=== PATIENT | male | born 1940 | race African-American/Black ===

== ENCOUNTER 2018-06-18 10:29 | Inpatient (IN) | payer MEDICARE, BC, OTHER ==
[~2018-06-18] VITALS: Ht 172.7 cm; Wt 68.0 kg
[2018-06-18] MEDS ORDERED: ELIQUIS (10:38)
[2018-06-18] MEDS ORDERED: IV NORMAL SALINE 500 ML BAG IV ONE (10:45)
--- NOTE | 2018-06-18 10:45 | NUR ---
PT IS IN ROOM #1B. DR NORTON EVALUATED THE PT.
[2018-06-18 11:01] LABS: BASOPHILS % (AUTO) 0.3 % (0.0-2.0); EOSINOPHILS % (AUTO) 0.9 % (0.0-7.0); HEMOGLOBIN 11.7 g/dL (12.5-16.3); LYMPHOCYTES # (AUTO) 1.4 K/uL (20.0-40.0); LYMPHOCYTES % (AUTO) 29.7 % (20.5-51.5); MEAN CORPUSCULAR HEMOGLOBIN 28.5 uug (23.8-33.4); MEAN CORPUSCULAR HGB CONC 32 g/dL (32.5-36.3); MEAN CORPUSCULAR VOLUME 89.9 fL (73.0-96.2); MONOCYTES # (AUTO) 0.6 K/uL (2.0-10.0); MONOCYTES % (AUTO) 12.9 % (0.0-11.0); NEUTROPHILS # (AUTO) 2.6 K/uL (1.8-8.9); NEUTROPHILS % (AUTO) 56.2 % (38.5-71.5); PLATELET COUNT (AUTO) 146 K/uL (152-348); RED BLOOD CELL COUNT(AUTO) 4.12 MIL/uL (4.06-5.63); WHITE BLOOD COUNT (AUTO) 4.6 K/uL (3.6-10.2)
[2018-06-18 11:08] LABS: CARBON DIOXIDE 30 mmol/L (21-32); CHLORIDE 108 mmol/L (98-107); CREATININE 1.8 mg/dL (0.6-1.3); GLUCOSE 120 mg/dL (74-106); UREA NITROGEN, BLOOD 33 mg/dL (7-18)
[2018-06-18 11:13] LABS: ALANINE AMINOTRANSFERASE 23 U/L (16-63); ALKALINE PHOSPHATASE 51 U/L (50-136); ASPARTATE AMINOTRANSFERASE 15 U/L (15-37); BILIRUBIN,DIRECT 0.1 mg/dL (0.0-0.2); BILIRUBIN,TOTAL 0.3 mg/dL (0.2-1.0); TOTAL PROTEIN, SERUM 6.3 g/dL (6.4-8.2)
[2018-06-18] MEDS ORDERED: SIMVASTATIN (11:31)
[2018-06-18] MEDS ORDERED: B/P MEDICATION (11:31)
[2018-06-18] MEDS ORDERED: CHLORTHALIDONE (11:31)
--- NOTE | 2018-06-18 11:31 | NUR ---
Patient and family unable to provide complete information about home medications. Family stated they will attempt to obtain for information.
[2018-06-18] MEDS ORDERED: ONDANSETRON 4 MG/2 ML VIAL IV PRN (12:30)
[2018-06-18] MEDS ORDERED: MAGNESIUM HYDROXIDE 30 ML LIQUID UDC PO PRN (12:30)
[2018-06-18] MEDS ORDERED: Z GUARD REMEDY PASTE 57 GM TUBE TOP PRN (12:30)
[2018-06-18] MEDS ORDERED: ACETAMINOPHEN 325 MG TABLET PO PRN (12:30)
[2018-06-18] MEDS ORDERED: ASPIRIN 325 MG TABLET PO ONE (12:45)
--- NOTE | 2018-06-18 12:46 | NUR ---
REPORT WAS GIVEN TO IS ARCHITECT. PT WAS TRANSFERED TO ROOM #310.
[2018-06-18 13:14] LABS: *BILIRUBIN,URIN NEGATIVE (NEGATIVE); *BLOOD, URINE NEGATIVE (NEGATIVE); *CLARITY,URINE CLEAR (CLEAR); *COLOR,URINE YELLOW (YELLOW); *KETONES,URINE NEGATIVE (NEGATIVE); *UROBILINOGEN,URINE 0.2 E.U./dl (NORMAL); LEUKOCYTE ESTERASE ,URINE NEGATIVE (NEGATIVE); NITRITE, URINE NEGATIVE (NEGATIVE); UGLUCOSE NEGATIVE (NEGATIVE)
[2018-06-18 13:19] LABS: BACTERIA,URINE FEW /HPF (NONE SEEN); RBC,URINE NONE SEEN /HPF (0-3); SQUAMOUS EPITHELIAL CELL,UR FEW /HPF (NONE SEEN); WBC,URINE NONE SEEN /HPF (0-3)
--- NOTE | 2018-06-18 13:25 | NUR ---
77 year old male received from er for syncope via gurney to room 310 in stable condition v/s are stable,call light with in reach md called for admission orders is at bed side .p[t is axox4
[2018-06-18 14:19] VITALS: BP 126/69
[2018-06-18] MEDS: IV NS 1000 ML 1,000 ML IV PRN (14:52)
[2018-06-18 15:57] VITALS: BP 131/77
[2018-06-18 19:13] VITALS: BP 132/73
[2018-06-18] MEDS ORDERED: SIMVASTATIN 40 MG TABLET PO SCH (21:00)
--- NOTE | 2018-06-18 23:00 | NUR ---
Received patient awake in bed with family at bedside. Patient is AAOx4. Patient verbalizes feeling better except for a slight burning sensation on right hip/buttox area that is relieved with PRN Tylenol and heating pad. Patient is ambulatory with assist due to weakness on the right side. Patient utilizes the bedside commode. VSS stable. No acute distress noted. All needs met at this time. Call light within reach. Comfort and safety measures implemented. Will continue to monitor throughout shift.
[2018-06-18 23:55] VITALS: BP 153/79
[2018-06-19 03:11] VITALS: BP 144/80
--- NOTE | 2018-06-19 05:44 | NUR ---
Patient slept throughout night. No acute distress noted. Denies pain or any discomfort. Safety measures implemented and effective. Call light within reach. Continue plan of care.
[2018-06-19] MEDS: PANTOPRAZOLE SODIUM 40 MG TABLET.DR PO SCH (06:14)
[2018-06-19 06:29] LABS: BASOPHILS % (AUTO) 0.3 % (0.0-2.0); EOSINOPHILS # (AUTO) 0.1 K/uL (0.0-0.7); EOSINOPHILS % (AUTO) 1.2 % (0.0-7.0); HEMATOCRIT 39.2 % (36.7-47.1); HEMOGLOBIN 12.5 g/dL (12.5-16.3); LYMPHOCYTES # (AUTO) 1.3 K/uL (20.0-40.0); LYMPHOCYTES % (AUTO) 23.9 % (20.5-51.5); MEAN CORPUSCULAR HEMOGLOBIN 28.7 uug (23.8-33.4); MEAN CORPUSCULAR HGB CONC 32 g/dL (32.5-36.3); MEAN CORPUSCULAR VOLUME 90.1 fL (73.0-96.2); MONOCYTES # (AUTO) 0.6 K/uL (2.0-10.0); NEUTROPHILS # (AUTO) 3.5 K/uL (1.8-8.9); NEUTROPHILS % (AUTO) 63.6 % (38.5-71.5); PLATELET COUNT (AUTO) 137 K/uL (152-348); RED BLOOD CELL COUNT(AUTO) 4.35 MIL/uL (4.06-5.63); WHITE BLOOD COUNT (AUTO) 5.4 K/uL (3.6-10.2)
[2018-06-19 06:45] LABS: CARBON DIOXIDE 30 mmol/L (21-32); CHLORIDE 104 mmol/L (98-107); CHOLESTEROL 107 mg/dL (<200); CREATININE 1.4 mg/dL (0.6-1.3); GLUCOSE 89 mg/dL (74-106); HDL CHOLESTEROL 59 mg/dL (40-60); MAGNESIUM 1.7 mg/dL (1.8-2.4); PHOSPHOROUS 2.5 mg/dL (2.5-4.9); POTASSIUM 3.1 mmol/L (3.5-5.1); TRIGLYCERIDES 37 MG/DL (30-150); UREA NITROGEN, BLOOD 24 mg/dL (7-18)
[2018-06-19] MEDS: IV NS 1000 ML 1,000 ML IV PRN ×2 (06:52→19:02)
[2018-06-19] MEDS ORDERED: MAGNESIUM OXIDE 400 MG TABLET PO ONE (07:30)
[2018-06-19] MEDS: POTASSIUM CHLORIDE 50 ML IV SCH ×4 (07:43→10:58)
[2018-06-19] MEDS ORDERED: SIMVASTATIN 10 MG TABLET PO SCH (09:00)
[2018-06-19] MEDS ORDERED: SODIUM CHLORIDE 2% OPHT DROPS 15 ML EACHEYE SCH (10:11)
[2018-06-19 11:29] VITALS: BP 133/80
[2018-06-19] MEDS ORDERED: ROSU20TA31 PO (11:42)
[2018-06-19] MEDS ORDERED: APIX5TAB PO (11:42)
[2018-06-19] MEDS ORDERED: KRIL1CAP22 PO (11:42)
[2018-06-19] MEDS ORDERED: ERGO500040 PO (11:42)
[2018-06-19] MEDS ORDERED: HYDR-4077 PO (11:42)
[2018-06-19] MEDS ORDERED: PRED5DRO16 EACHEYE (11:43)
[2018-06-19] MEDS ORDERED: CARB15DR56 EACHEYE (11:48)
[2018-06-19] MEDS: MAGNESIUM SULFATE/D5W 100 ML IV SCH ×2 (14:32→15:01)
[2018-06-19] MEDS: APIXABAN 5 MG TABLET**PATIENT'S OWN MED PO SCH (16:46)
[2018-06-19] MEDS ORDERED: POLYVINYL ALCOHOL OPHT DROPS 15 ML BOTTLE EACHEYE PRN (17:15)
--- NOTE | 2018-06-19 20:00 | NUR ---
RECEIVED PATIENT AWAKE IN BED. PATIENT IS A/O X4. PATIENT DENIES PAIN. NO RESP. DISTRESS NOTED. VS WNL. H/L INTACT AND PATENT, WITH IVF INFUSING WELL. CALL LIGHT IN REACH. ALL NEEDS ATTENDED. WILL CONTINUE TO MONITOR AND ASSESS.
[2018-06-19 20:07] VITALS: BP 121/71
[2018-06-19] MEDS ORDERED: prednisoLONE ACET 1% OPHT DROP 5 ML BOTTLE EACHEYE SCH ×3 (21:00)
[2018-06-19] MEDS ORDERED: ROSUVASTATIN 20MG TAB PO SCH (21:00)
[2018-06-20 05:34] VITALS: BP 154/82
[2018-06-20] MEDS: PANTOPRAZOLE SODIUM 40 MG TABLET.DR PO SCH (06:21)
[2018-06-20 06:49] LABS: BASOPHILS % (AUTO) 0.2 % (0.0-2.0); EOSINOPHILS # (AUTO) 0.1 K/uL (0.0-0.7); EOSINOPHILS % (AUTO) 1.2 % (0.0-7.0); HEMATOCRIT 35.9 % (36.7-47.1); HEMOGLOBIN 11.7 g/dL (12.5-16.3); LYMPHOCYTES # (AUTO) 1.3 K/uL (20.0-40.0); LYMPHOCYTES % (AUTO) 23.2 % (20.5-51.5); MEAN CORPUSCULAR HGB CONC 33 g/dL (32.5-36.3); MEAN CORPUSCULAR VOLUME 89.3 fL (73.0-96.2); MONOCYTES # (AUTO) 0.6 K/uL (2.0-10.0); NEUTROPHILS # (AUTO) 3.5 K/uL (1.8-8.9); NEUTROPHILS % (AUTO) 64.4 % (38.5-71.5); PLATELET COUNT (AUTO) 141 K/uL (152-348); RED BLOOD CELL COUNT(AUTO) 4.03 MIL/uL (4.06-5.63); WHITE BLOOD COUNT (AUTO) 5.4 K/uL (3.6-10.2)
--- NOTE | 2018-06-20 06:55 | NUR ---
PATIENT AWAKE IN BED. SLEPT WELL THROUGHOUT THE NIGHT. IVF INFUSING WELL. CALL LIGHT IN REACH. ALL NEEDS ATTENDED. WILL CONTINUE TO MONITOR.
[2018-06-20 07:02] LABS: CARBON DIOXIDE 27 mmol/L (21-32); CHLORIDE 108 mmol/L (98-107); CREATININE 1.3 mg/dL (0.6-1.3); GLUCOSE 87 mg/dL (74-106); MAGNESIUM 1.8 mg/dL (1.8-2.4); POTASSIUM 3.6 mmol/L (3.5-5.1); UREA NITROGEN, BLOOD 21 mg/dL (7-18)
[2018-06-20] MEDS: APIXABAN 5 MG TABLET**PATIENT'S OWN MED PO SCH (08:21)
[2018-06-20] MEDS ORDERED: APIXABAN 5 MG TABLET PO SCH (09:00)
[2018-06-20] MEDS ORDERED: [UNRECOGNIZED DRUG - OTHER] PO SCH (09:00)
[2018-06-20] MEDS ORDERED: NEUTRA PHOS PACKET PO ONE (09:15)
[2018-06-20] MEDS ORDERED: POTASSIUM CHLORIDE 20 MEQ POWDER PACKET PO ONE (09:15)
[2018-06-20] MEDS: MAGNESIUM SULFATE/D5W 100 ML IV SCH ×2 (09:29→10:08)
[2018-06-20 11:40] VITALS: BP 154/86
--- NOTE | 2018-06-20 12:20 | NUR ---
d/c orders received noted and carried out,araceli/c nafisa per md orders d/c instruction and education given to the pt and his .pt left the facility via private car in stable condition
[2018-06-22] MEDS ORDERED: ERGOCALCIFEROL 50,000 UNIT CAPSULE PO SCH (09:00)
== END 2018-06-20 12:20 | disposition home or self-care (01) | DRG 640 ==
LOC: ER 10:29 → TELE3 12:37 → MEDSURG3 06-19 13:29
PROVIDERS: ADMIT Registered Nurse; ATTEND Registered Nurse
DX: E86.0 Dehydration (principal); N17.0 Acute kidney failure with tubular necrosis; I69.351 Hemiplegia and hemiparesis following cerebral infarction affecting right dominant side; I50.32 Chronic diastolic (congestive) heart failure; E87.6 Hypokalemia; T50.2X5A Adverse effect of carbonic-anhydrase inhibitors, benzothiadiazides and other diuretics, initial encounter; Y92.830 Public park as the place of occurrence of the external cause; H54.8 Legal blindness, as defined in USA; I48.0 Paroxysmal atrial fibrillation; Z79.01 Long term (current) use of anticoagulants; I44.0 Atrioventricular block, first degree; I11.0 Hypertensive heart disease with heart failure; Z92.3 Personal history of irradiation; Z85.46 Personal history of malignant neoplasm of prostate; Z95.0 Presence of cardiac pacemaker; N20.0 Calculus of kidney; K57.30 Diverticulosis of large intestine without perforation or abscess without bleeding; I70.0 Atherosclerosis of aorta; R73.9 Hyperglycemia, unspecified; I08.2 Rheumatic disorders of both aortic and tricuspid valves
CPT/HCPCS: 36415; 70030-TC; 70450; 71045; 72192; 83735; 84100; 84443; 85025; 85730; 93005; 93307; 93880; 97110; 97530; A4663; G0378; J2650; J3475; J3480; J7030